=== PATIENT | male | born 1975 | race Caucasian/White ===

== ENCOUNTER → 2017-02-25 | Outpatient (CLI) | payer OTHER ==
--- NOTE | 2017-02-25 15:53 | DIAGNOSTIC IMAGING REPORT ---
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 COMPARISON STUDY: None FINDINGS: Mastoid air cells are clear bilaterally. The structures of the middle ear including all ossicles appear unremarkable. There is mild scarring and slight retraction of the tympanic membranes bilaterally. This is considered a nonacute process with no associated soft tissue component. The scutum is intact. The external auditory canals appear unremarkable. The eustachian tubes appear patent bilaterally. There is no bony destructive process. The attic is clear bilaterally. IMPRESSION: 1. Slight scarring and retraction of the tympanic membranes bilaterally.. 2. This may represent residual scarring from prior postinflammatory change. 3. No acute process with all remaining components of the study within normal limits. 4. All middle ear contents/ossicles are aligned anatomically with no evidence for a destructive or abnormal soft tissue process Electronically signed by: Juan Antonio Ramos M.D. 02/25/2017 3:51 PM Dictated Date/Time: 02/25/2017 3:46 PM
== END | disposition home or self-care (01) ==
LOC: C.CTS 15:25
PROVIDERS: ATTEND Physician Assistant
DX: H90.11 Conductive hearing loss, unilateral, right ear, with unrestricted hearing on the contralateral side (principal)

== ENCOUNTER → 2017-05-07 | Outpatient (CLI) | payer OTHER ==
[2017-05-07 09:39] LABS: BASO % 0.5 %; BASO ABS # 0.04 K/uL (0-0.2); COMPLETE YES; EOS % 1.9 %; HEMATOCRIT 43.2 % (42-52); IG% 0.1 %; LYMPH % 18.4 %; LYMPH ABS # 1.48 K/uL (1.2-3.4); MEAN CELL VOLUME 82.3 fL (80-100); MEAN CORPUSCULAR HEMOGLOBIN 26.7 pg (25-34); MEAN CORPUSCULAR HGB CONC 32.4 g/dl (32-36); MEAN PLATELET VOLUME 9.5 fL (7.4-10.4); MONO % 6.5 %; NEUT % 72.6 %; PLATELET COUNT 336 K/uL (130-400); RED BLOOD COUNT 5.25 M/uL (4.7-6.1); WHITE BLOOD COUNT 8.05 K/uL (4.8-10.8)
[2017-05-07 09:57] LABS: CALCIUM 8.6 mg/dl (8.5-10.1)
[2017-05-07 09:59] LABS: ALT/SGPT 28 U/L (12-78); BLOOD UREA NITROGEN 15 mg/dl (7-18); BUN/CREATININE RATIO 14.5 (10-20); CARBON DIOXIDE 20 mmol/L (21-32); CHLORIDE 112 mmol/L (98-107); CHOLESTEROL 149 mg/dl (0-200); GLUCOSE 112 mg/dl (70-99); POTASSIUM 4.1 mmol/L (3.5-5.1); SODIUM 142 mmol/L (136-145); TRIGLYCERIDES 66 mg/dl (0-150); VERY LOW DENSITY LIPOPROT CALC 13 mg/dl
[2017-05-07 10:03] LABS: ALB/GLOB RATIO 0.8 (0.9-2); ALKALINE PHOSPHATASE 83 U/L (45-117); AST/SGOT 14 U/L (15-37); CHOLESTEROL/HDL RATIO 3.4; HDL CHOLESTEROL 44 mg/dl; LDL CHOLESTEROL CALCULATED 92 mg/dl
== END | disposition home or self-care (01) ==
LOC: C.LAB 08:12
PROVIDERS: ATTEND Nurse Practitioner Family
DX: Z13.220 Encounter for screening for lipoid disorders (principal); Z13.1 Encounter for screening for diabetes mellitus

== ENCOUNTER → 2018-02-04 | Outpatient (CLI) | payer OTHER ==
[2018-02-04 10:08] LABS: ALBUMIN 3.7 gm/dl (3.4-5.0); ALKALINE PHOSPHATASE 90 U/L (45-117); ALT/SGPT 35 U/L (12-78); AST/SGOT 24 U/L (15-37); BLOOD UREA NITROGEN 12 mg/dl (7-18); CALCIUM 8.9 mg/dl (8.5-10.1); CARBON DIOXIDE 26 mmol/L (21-32); CHOLESTEROL 145 mg/dl (0-200); CREATININE 0.97 mg/dl (0.60-1.40); GLUCOSE 110 mg/dl (70-99); POTASSIUM 4.1 mmol/L (3.5-5.1); SODIUM 139 mmol/L (136-145); TOTAL PROTEIN 7.5 gm/dl (6.4-8.2)
[2018-02-04 10:09] LABS: LDL CHOLESTEROL CALCULATED 89 mg/dl
== END | disposition home or self-care (01) ==
LOC: C.LAB 07:45
PROVIDERS: ATTEND Nurse Practitioner Family
DX: Z13.220 Encounter for screening for lipoid disorders (principal); Z13.1 Encounter for screening for diabetes mellitus